=== PATIENT | female | born 1985 | race African-American/Black ===

== ENCOUNTER 2021-03-14 17:52 | Emergency (ER) | payer OTHER | END 2021-03-14 19:46 | disposition left against medical advice (07) | LOC: CSHERS 17:52 | DX: Z53.21 Procedure and treatment not carried out due to patient leaving prior to being seen by health care provider (principal) ==

== ENCOUNTER 2021-03-19 16:13 | Emergency (ER) | payer OTHER ==
[2021-03-19 18:30] LABS: SARS-CoV-2 NAA Rapid Test DETECTED (NotDetected)
== END 2021-03-19 17:25 | disposition home or self-care (01) ==
LOC: CSHERS 16:13
DX: U07.1 COVID-19 (principal)
CPT/HCPCS: 0240U; 99283